=== PATIENT | male | born 2000 | race Caucasian/White ===

== ENCOUNTER 2023-10-02 22:08 | Emergency (ER) | payer OTHER ==
[2023-10-02 22:27] VITALS: BP 126/77; PULSE 68; RESP 18; TEMP 98.4; BMI 20.5
[2023-10-02] MEDS ORDERED: FAMOTIDINE 20 MG/50 ML IVPB 20 MG/50 ML MG IVPB ONE (23:24)
[2023-10-02] MEDS ORDERED: MAG HYDROX/AL HYDROX/SIMETH 30 ML UNIT-DOSE CUP PO ONE (23:24)
[2023-10-02] MEDS ORDERED: FAMOTIDINE 20 MG TABLET PO ONE (23:30)
[2023-10-02] MEDS ORDERED: MAG HYDROX/AL HYDROX/SIMETH 30 ML UNIT-DOSE CUP ONE (23:31)
[2023-10-02] MEDS ORDERED: FAMOTIDINE 20 MG TABLET ONE (23:31)
== END 2023-10-03 00:45 | disposition home or self-care (01) ==
LOC: JER 22:08
DX: R07.9 Chest pain, unspecified (principal); K21.00 Gastro-esophageal reflux disease with esophagitis, without bleeding
CPT/HCPCS: 71046-TC-FY; 93005; 93010; 99284-25